=== PATIENT | male | born 1985 | race African-American/Black ===

== ENCOUNTER 2018-08-02 12:21 | Emergency (ER) | payer OTHER ==
[~2018-08-02] VITALS: Ht 182.9 cm; Wt 104.3 kg
[~2018-08-02 12:21] MED LIST: BENADRYL25 MG PO; FLONASE 0.05%50 MCG NASAL; IBUPROFEN 600600 M1 PO; IBUPROFEN 800800 MG PO; NOHOMEMEDICATIONS; ZPAK PO
[2018-08-02] MEDS ORDERED: TESSALON PERLE100 MG PO (12:43)
== END 2018-08-02 12:49 | disposition home or self-care (01) ==
LOC: ER 12:21
DX: J06.9 Acute upper respiratory infection, unspecified (principal)

== ENCOUNTER 2018-12-04 14:28 | Emergency (ER) | payer OTHER ==
[~2018-12-04] VITALS: Ht 182.9 cm; Wt 72.6 kg
[~2018-12-04 14:28] MED LIST changes: +TESSALON PERLE100 MG PO
[2018-12-04] MEDS ORDERED: KEFLEX500 M1 PO (15:46)
[2018-12-04] MEDS ORDERED: IBUPROFEN 600600 M1 PO (15:47)
[2018-12-04 15:57] VITALS: BP 147/81
== END 2018-12-04 16:00 | disposition home or self-care (01) ==
LOC: ER 14:28
DX: S60.141A Contusion of right ring finger with damage to nail, initial encounter (principal); W23.1XXA Caught, crushed, jammed, or pinched between stationary objects, initial encounter; Y92.89 Other specified places as the place of occurrence of the external cause; Y93.89 Activity, other specified; Y99.8 Other external cause status